=== PATIENT | female | born 1965 | race Caucasian/White ===

== ENCOUNTER → 2017-03-12 | Outpatient (CLI) | payer OTHER | LOC: FIMAGING 10:47 | DX: Z12.31 Encounter for screening mammogram for malignant neoplasm of breast (principal); Z80.3 Family history of malignant neoplasm of breast | CPT/HCPCS: G0202 ==

== ENCOUNTER 2017-07-15 06:01 | Day surgery (SDC) | payer OTHER ==
--- NOTE | 2017-06-25 14:09 | GHP ---
[f rep st] PREOP HISTORY AND PHYSICAL DATE OF ADMISSION: 07/15/2017 The patient is slated for surgery on 07/15/2016 on the gynecology service. HISTORY OF PRESENT ISSUE: The patient is a 51-year-old, G7, P3, A4 white female who is having perimenopausal changes of her menstrual cycles and had a thickness on the endometrial lining noted on the past several ultrasounds. There has been a slow increase in the size and appearance that is consistent with an endometrial polyp. However, now due to the change she desires to have definitive evaluation and confirmation of benign. The patient's cycles had been consistently regular in a monthly pattern until this February. Now there has been more fluctuation with cycles as short as 17 days, spacing out to 48 days in interval. The flow itself which was consistently approximately 5 days, now is more protracted out to 7-8 days with some pre-period spotting as well as dragging out for a couple of days. The patient has noticed increased temperature at night as well. The patient, late spring and summer, was much more stressful with her mom having a broken ankle and needing to live at the patient's house for several months and then transitioning back to living on her own. The patient had an ultrasound performed last year which showed a possible hyperechoic mass 0.9 cm in the upper endometrium. The patient has had regular ultrasounds due to a family history of breast and ovarian cancer. A repeat ultrasound in September of 2016 continued to show the mass in the upper endometrial canal at 1 cm. Now the lining on an ultrasound in March was very thin -walled except for an area in the upper endometrial canal now measuring 1.5 cm and a newer one lower in the canal at 0.7 cm. Bilaterally the ovaries have always appeared benign. Total uterine size is 7.6 x 5 x 5 cm. The patient did have an endometrial biopsy performed in February 2016 that showed a proliferative phase endometrium. At this point, due to the increasing size, the patient wants definitive management of a hysteroscopy and removal of the tissue and sampling of the lining for full evaluation. The risks and benefits of hysteroscopy were discussed with the patient and the consent form signed. PAST MEDICAL HISTORY: The patient has very good health and has not had any chronic issues with asthma or cardiac or thyroid. The patient has no known intestinal disorders. She does babb insomnia at times and occasionally uses Ambien. PAST SURGICAL HISTORY: Negative. PAST OBSTETRIC HISTORY: Three vaginal deliveries at term. Her oldest is a son who just left for college and she has 2 daughters. The patient had 4 early losses. ALLERGIES: The patient has no known drug allergies, with possibly a mild reaction with penicillin with a rash in the past. CURRENT MEDICATIONS: The patient occasionally uses Ambien 5 mg and otherwise takes vitamins and iron occasionally. Vitamin D recently due to deficiency noted in February. SOCIAL HISTORY: The patient is , lives with her and her 2 girls. Son is preparing to leave for college. The patient is a nonsmoker and no marijuana with occasional social alcohol. PAST HUMAN RESOURCES RECEPTIONIST HISTORY: Patient had cryotherapy years ago for atypical Pap smears but recent evaluations have all been negative with negative HPV. FAMILY HISTORY: The patient has a significant history of cancer in the family with her sister having breast cancer at the age of 36, maternal grandmother with ovarian cancer at 68, and an aunt with ovarian cancer at 56. The patient' s cousin also had breast cancer at 46. The patient's cousin was tested and found to be BRCA positive. The patient and her sister have both been tested and are negative. LABORATORY DATA: Recent lab values done in February showed a normal CBC with white count of 8.5, hemoglobin and hematocrit of 13 and 39, with normal platelets of 196. Complete metabolic panel was normal and TSH 0.9. Her lipid profile is normal. Vitamin D was 38. PHYSICAL EXAMINATION: GENERAL: The patient is a well-developed, well- nourished white female in no physical distress. VITAL SIGNS: Normal. Patient is clinically afebrile. Blood pressure 102/68. The patient's weight is 118 pounds and the patient is 65 inches tall. Her BMI is 20. HEENT: Shows no thyromegaly. No adenopathy. Oropharynx is clear. LUNGS: Clear to auscultation bilaterally. CARDIOVASCULAR: Regular rate and rhythm. ABDOMEN: Soft, nontender. PELVIC: Exam was not repeated recently but the patient has a small, mobile, nontender uterus. No adnexal masses. Last Pap smear was August 2016 and was negative. EXTREMITIES: Nontender. No edema. ASSESSMENT: Thickened endometrium with a 1.5 cm mass in the upper canal with perimenopausal bleeding. History of breast and ovarian cancer in the family. PLAN: Will proceed with hysteroscopy and morcellation of the mass for a thorough sampling. Consent form was signed. The patient will receive a dose of preoperative antibiotics. Surgery will proceed on July 15, 2017. /[id number]/MODL MTDD
[~2017-07-15 06:01] MED LIST: LIDOCAINE 1% 2 ML INJ ONE
[2017-07-15] MEDS ORDERED: LIDOCAINE 1% 2 ML INJ ID PRN (06:05)
[2017-07-15] MEDS ORDERED: LR 1,000 ML IV ONE (06:05)
[2017-07-15 06:31] VITALS: PULSE 74
[2017-07-15] MEDS ORDERED: SILVER NITRATE APPLICATOR 1 APPL TP ONE (06:45)
[2017-07-15] MEDS ORDERED: MIDAZOLAM 2 MG/2 ML VIAL IVP ONE (07:06)
[2017-07-15] MEDS ORDERED: MIDAZOLAM 2 MG/2 ML VIAL ONE (07:07)
--- NOTE | 2017-07-15 07:16 | PDANEPAE ---
ANE History of Present Illness 51 with uterine polyps ANE Past Medical History - Cardiovascular History Hx Hypertension: No Hx Arrhythmias: No Hx Chest Pain: No Hx Coronary Artery / Peripheral Vascular Disease: No Hx CHF / Valvular Disease: No Hx Palpitations: No - Pulmonary History Hx COPD: No Hx Asthma/Reactive Airway Disease: No Hx Recent Upper Respiratory Infection: No Hx Oxygen in Use at Home: No Hx Sleep Apnea: No Sleep Apnea Screening Result - Last Documented: Negative - Neurologic History Hx Cerebrovascular Accident: No - Endocrine History Hx Diabetes: No - Renal History Hx Renal Disorders: No - Liver History Hx Hepatic Disorders: No - Neurological & Psychiatric Hx Hx Neurological and Psychiatric Disorders: No - Cancer History Hx Cancer: No - Congenital Disorder History Hx Congenital Disorders: No - GI History Hx Gastrointestinal Disorders: No - Other Health History Other Health History: thickened uterine lining-polyps, mid-cycle bleeding. - Surgical History Prior Surgeries: no surgery ANE Review of Systems Review of systems is: negative - Exercise capacity METS (RN): 4 METS ANE Patient History - Allergies Allergies/Adverse Reactions: Penicillins Allergy (Mild, Verified 05/26/17 15:09) Rash - Home Medications Home Medications: Multivitamin 05/26/17 [Last Taken 07/01/17] Zolpidem Tartrate 05/26/17 [Last Taken 07/14/17 19:00] - NPO status NPO Since - Liquids (Date): 07/14/17 NPO Since - Liquids (Time): 19:00 NPO Since - Solids (Date): 07/14/17 NPO Since - Solids (Time): 18:00 - Smoking Hx Smoking Status: Never smoked - Alcohol Use Alcohol Use: Rarely - Family Anes Hx Family Hx Anesthesia Complications: not aware ANE Labs/Vital Signs - Vital Signs Blood Pressure: 123/71 Heart Rate: 74 Respiratory Rate: 16 O2 Sat (%): 97 Height: 165.1 cm Weight: 53.524 kg ANE Physical Exam - Airway Neck exam: FROM Mallampati Score: Class 1 - Pulmonary Pulmonary: no respiratory distress, clear to auscultation - Cardiovascular Cardiovascular: regular rate and rhythym - ASA Status ASA Status: I ANE Anesthesia Plan Anesthesia Plan: MAC
--- NOTE | 2017-07-15 07:17 | PDHPUP ---
History & Physical Update H&P update statement: This history and physical update is based on an assessment of the patient which was completed after admission or registration (within 24 hours), but prior to the surgery/procedure.
[2017-07-15] MEDS ORDERED: fentaNYL 100 MCG/2 ML INJ ONE (07:29)
[2017-07-15] MEDS ORDERED: PROPOFOL/EMULSION 500 MG/50 ML BOTTLE IV ONE (07:30)
[2017-07-15] MEDS ORDERED: fentaNYL 100 MCG/2 ML INJ IVP PRN (08:14)
[2017-07-15] MEDS ORDERED: ONDANSETRON 4 MG/2 ML VIAL IVP PRN (08:14)
[2017-07-15] MEDS ORDERED: NALOXONE HCL 0.4 MG/ML INJ IVP PRN (08:14)
[2017-07-15] MEDS ORDERED: PROMETHAZINE HCL 25 MG/ML INJ IVP PRN (08:14)
--- NOTE | 2017-07-15 08:16 | POSTANESTH ---
Post Anesthetic Evaluation Cardiovascular Status: Normal, Stable Respiratory Status: Normal, Stable Level of Consciousness/Mental Status: Can Participate in Eval Pain Control: Adequate, Prn Tx Ordered Nausea/Vomiting Control: Adequate, Prn Tx Ordered Complications Possibly Related to Anesthesia: None Noted
--- NOTE | 2017-07-15 08:24 | POSTOPPROG ---
Post Op Note Date of Operation: 07/15/17 Surgeon: Zina Ramirez Anesthesiologist: Wayne Gallardo MD Anesthesia: LMA Pre-op Diagnosis: Thickened endometrium Post-op Diagnosis: same Indication: 51 y/o with perimenopausal bld and thickened lining on u/s Procedure: HSC, polypectomy Findings: nl cx dilated easily, one dominant polyp and one sm in rt cornua, thin ET Inf/Abcess present in the surg proc area at time of surgery?: No Depth: Organ Space EBL: Minimal Complications: none Specimen(s): endometrial polyps
[2017-07-15 08:33] VITALS: TEMP 97.5
--- NOTE | 2017-07-15 09:06 | GOP ---
[f rep st] OPERATIVE REPORT DATE OF OPERATION: 07/15/2017 SURGEON: Zina Ramirez MD ANESTHESIA: MAC anesthesia. ANESTHESIOLOGIST: Gerardo Gallardo MD. PREOPERATIVE DIAGNOSIS: Thickened endometrium with perimenopausal bleeding. POSTOPERATIVE DIAGNOSIS: Thickened endometrium with perimenopausal bleeding with endometrial polyps . PROCEDURE PERFORMED: Hysteroscopy with polypectomy. FINDINGS: SPECIMENS: The endometrial polyp tissue was sent to Pathology for full evaluation. ESTIMATED BLOOD LOSS: Minimal. INDICATIONS: Patient is a 51-year-old, G7, P3, A4, white female, with perimenopausal changes of the menstrual cycle. Patient has had ultrasounds to monitor the endometrial lining, and there has been a slow increase in the thickness that is consistent with an endometrial polyp. The patient now wan ts definitive management with a hysteroscopy and removal. An endometrial biopsy was performed in 2015 which showed a normal proliferative lining. Due to an increase in size, the patient does w ant definitive removal. The patient does have a family history of breast and ovarian cancer. Risks and benefits of the procedure discussed and the consent form signed. DESCRIPTION OF PROCEDURE: The patient was taken to the operating room where, following satisfactory MAC anesthesia, the patient was placed in dorsal lithotomy position. The patient's perineum and va avelina were prepped and the patient draped in usual sterile manner for hysteroscopy. The patient had urinated prior to coming to the operating room. A sterile speculum was placed within the vagina and a single-tooth tenaculum was placed on the anterior lip of the cervix and gentle traction applied. The cervix was slowly dilated up to 9-1/2 Hegar dilator without any problems. The hysteroscope the n was introduced, and there was good visualization achieved quickly. There was evidence of an endom etrial polyp filling the cavity and a smaller polyp also up in the right cornual area. These were r emoved easily with the morcellator with the polyp blade. Otherwise the lining appeared relatively t hin, and there was no additional curettage performed other than right on the posterior lip of the in ternal os. There was minimal bleeding from the bases of these polyps. The hysteroscope was removed , the tenaculum taken off the anterior lip of the cervix, and pressure was applied to the cervix. T here was minimal bleeding from the tenaculum sites. The patient was cleaned off and taken out of po sition. She was taken to the recovery room in stable condition. She was awoken easily. The defici ency on the hysteroscopy was 125 mL. COMPLICATIONS: None. /[id number]/MODL
[2017-07-15 09:13] VITALS: BP 89/56; RESP 16; O2SAT 97
== END 2017-07-15 09:40 | disposition home or self-care (01) ==
LOC: FSGY 06:01
PROVIDERS: ATTEND Obstetrics & Gynecology
PROC: 0UDB8ZX Extraction of Endometrium, Via Natural or Artificial Opening Endoscopic, Diagnostic (ICD-10-PCS; principal; 2017-07-15 07:15)
DX: N84.0 Polyp of corpus uteri (principal); Z80.3 Family history of malignant neoplasm of breast; Z80.41 Family history of malignant neoplasm of ovary
CPT/HCPCS: 58558; C1782; J0690; J2250; J2704; J3010

== ENCOUNTER → 2018-03-15 | Outpatient (CLI) | payer OTHER | LOC: FIMAGING 10:52 | PROVIDERS: ATTEND Obstetrics & Gynecology | DX: Z12.31 Encounter for screening mammogram for malignant neoplasm of breast (principal) ==

== ENCOUNTER → 2019-03-16 | Outpatient (CLI) | payer OTHER | LOC: FIMAGING 12:15 | PROVIDERS: ATTEND Obstetrics & Gynecology | DX: Z12.31 Encounter for screening mammogram for malignant neoplasm of breast (principal); Z80.3 Family history of malignant neoplasm of breast ==